=== PATIENT | female | born 1985 | race Caucasian/White ===

== ENCOUNTER 2021-05-17 04:31 | Inpatient (IN) | payer BC ==
[2021-05-17] MEDS ORDERED: Lactated Ringers 1,000 ML IV ONE ×2 (05:09→05:41)
[2021-05-17] MEDS ORDERED: Carboprost Tromethamine 250 MCG/1 ML Amp IM PRN (05:41)
[2021-05-17] MEDS ORDERED: Lidocaine 1% 30 ML SDV INJECT PRN (05:41)
[2021-05-17] MEDS ORDERED: Sodium Chloride 0.9% 10 ML Syringe FLUSH PRN (05:41)
[2021-05-17] MEDS ORDERED: Misoprostol 400 MCG (4 X 100 MCG TAB) RECTAL PRN (05:41)
[2021-05-17] MEDS ORDERED: Methylergonovine 0.2 MG/1 ML Amp IM PRN (05:41)
[2021-05-17] MEDS ORDERED: Acetaminophen 325 MG Tab PO PRN ×2 (05:41→10:09)
[2021-05-17] MEDS ORDERED: Tranexamic Acid 1,000 MG in Sodium Chloride 0.9% 100 ML IV PRN (05:41)
[2021-05-17] MEDS ORDERED: Ondansetron 4 MG/2 ML SDV IVPUSH PRN (05:41)
[2021-05-17] MEDS ORDERED: Oxytocin/Normal Saline 30 UNIT/500 ML BAG IV SCH (05:45)
[2021-05-17] MEDS ORDERED: fentaNYL 100 MCG/2 ML SDV ONE (05:46)
[2021-05-17] MEDS ORDERED: Sodium Bicarbonate 4.2% 2.5 MEQ/5 ML SDV ONE (05:47)
[2021-05-17] MEDS ORDERED: EPINEPHrine 1 MG/ML SDV ONE (05:47)
[2021-05-17] MEDS ORDERED: ePHEDrine 50 MG/ML SDV ONE (06:08)
[2021-05-17] MEDS ORDERED: ePHEDrine 50 MG/ML SDV IVPUSH PRN (06:12)
[2021-05-17] MEDS: Lactated Ringers 1,000 ML IV SCH ×2 (07:25→17:49)
[2021-05-17] MEDS ORDERED: Simethicone 80 MG Tab.Chew PO PRN (10:09)
[2021-05-17] MEDS ORDERED: Oxytocin 10 Units/1 ML SDV IM PRN (10:09)
[2021-05-17] MEDS ORDERED: Benzocaine/Menthol 20%-0.5% Spray 78 GM Cannister TOP PRN (10:09)
[2021-05-17] MEDS: Ibuprofen 800 MG Tab PO PRN (17:45)
[2021-05-17] MEDS: Docusate Sodium 100 MG Cap PO PRN (20:45)
[2021-05-18] MEDS: Ibuprofen 800 MG Tab PO PRN (04:14)
[2021-05-18] MEDS ORDERED: Prenatal Multivitamin with Calcium/Folic Acid/Iron Tab PO SCH (09:00)
[2021-05-18] MEDS: Docusate Sodium 100 MG Cap PO PRN (10:30)
[2021-05-18 14:01] VITALS: BP 95/54; PULSE 85
== END 2021-05-18 13:50 | disposition home or self-care (01) | DRG 560 ==
LOC: DL.OBCHECK 04:31 → DL.OB 05:23
PROVIDERS: ADMIT Family Medicine; ATTEND Family Medicine
PROC: 10E0XZZ Delivery of Products of Conception, External Approach (ICD-10-PCS; principal; 2021-05-17)
PROC: 0HQ9XZZ Repair Perineum Skin, External Approach (ICD-10-PCS; 2021-05-17)
DX: O99.02 Anemia complicating childbirth (principal); O98.52 Other viral diseases complicating childbirth; U07.1 COVID-19; Z3A.38 38 weeks gestation of pregnancy; Z37.0 Single live birth; O99.12 Other diseases of the blood and blood-forming organs and certain disorders involving the immune mechanism complicating childbirth; D69.6 Thrombocytopenia, unspecified; D64.9 Anemia, unspecified; O69.1XX0 Labor and delivery complicated by cord around neck, with compression, not applicable or unspecified; O77.0 Labor and delivery complicated by meconium in amniotic fluid; O70.0 First degree perineal laceration during delivery
CPT/HCPCS: 36415; 59409; 85025; 85027; A9270-GY; J2590; J7120; U0002

== ENCOUNTER 2023-02-19 23:16 | Inpatient (IN) | payer BC ==
[2023-02-19] MEDS: Lactated Ringers 1,000 ML IV SCH (23:44)
[2023-02-19] MEDS ORDERED: Oxytocin/Normal Saline 30 UNIT/500 ML BAG IV SCH (23:45)
[2023-02-19 23:54] LABS: HEMATOCRIT 36.3 % (37.0-47.0); HEMOGLOBIN 11.9 g/dL (12.0-16.0); MEAN CORPUSCULAR HEMOGLOBIN 31.5 pg (27.0-34.0); MEAN CORPUSCULAR HGB CONC 32.8 g/dL (33.0-35.0); PLATELET COUNT,PLT 108 10^3/uL (150-450); RED BLOOD CELL COUNT 3.78 10^6/uL (4.2-5.4); WHITE BLOOD CELL COUNT,WBC 10.3 10^3/uL (5.0-10.0)
[2023-02-19] MEDS ORDERED: Lactated Ringers 1,000 ML IV ONE (23:55)
[2023-02-19] MEDS ORDERED: Misoprostol 400 MCG (4 X 100 MCG TAB) RECTAL PRN (23:55)
[2023-02-19] MEDS ORDERED: Acetaminophen 325 MG Tab PO PRN (23:55)
[2023-02-19] MEDS ORDERED: Lidocaine 1% 30 ML SDV INJECT ONE (23:55)
[2023-02-19] MEDS ORDERED: Carboprost Tromethamine 250 MCG/1 ML Amp IM PRN (23:55)
[2023-02-19] MEDS ORDERED: Ondansetron 4 MG/2 ML SDV IVPUSH PRN (23:55)
[2023-02-19] MEDS ORDERED: Methylergonovine 0.2 MG/1 ML Amp IM PRN (23:55)
[2023-02-19] MEDS ORDERED: Tranexamic Acid 1,000 MG in Sodium Chloride 0.9% 100 ML IV PRN (23:55)
[2023-02-19] MEDS ORDERED: Sodium Chloride 0.9% 10 ML Syringe FLUSH PRN (23:55)
[2023-02-20 00:01] LABS: BASOPHILS PERCENT AUTO 0.2 % (0.0-1.0); EOSINOPHILS PERCENT AUTO 0.5 % (1.0-3.0); LYMPHOCYTES PERCENT AUTO 21.1 % (20.5-50.1); MONOCYTES PERCENT AUTO 9.6 % (2-8); NEUTROPHILS PERCENT AUTO 68.6 % (42.2-75.2)
[2023-02-20] MEDS: Lactated Ringers 1,000 ML IV SCH (00:03)
[2023-02-20 00:25] LABS: BAND PERCENT MAN 2 %; EOSINOPHILS PERCENT MAN 1 % (1-3); LYMPHOCYTES PERCENT MAN 20 % (20-50); MONOCYTES PERCENT MAN 9 % (2-8); SEG NEUTROPHILS PERCENT MAN 68 % (42-75)
[2023-02-20] MEDS ORDERED: Phenylephrine HCl In 0.9% NaCl 1 MG/10 ML Syringe IVPUSH PRN (00:28)
[2023-02-20] MEDS ORDERED: ePHEDrine 50 MG/ML SDV IVPUSH PRN (00:28)
[2023-02-20] MEDS ORDERED: Ropivacaine 200 MG in Premix Bag 1 BAG EPIDUR SCH (00:30)
[2023-02-20] MEDS ORDERED: Benzocaine/Menthol 20%-0.5% Spray 78 GM Cannister TOP PRN (02:00)
[2023-02-20] MEDS ORDERED: Simethicone 80 MG Tab.Chew PO PRN (02:00)
[2023-02-20] MEDS ORDERED: Carboprost Tromethamine 250 MCG/1 ML Amp IM PRN (02:00)
[2023-02-20] MEDS ORDERED: Acetaminophen 325 MG Tab PO PRN (02:00)
[2023-02-20] MEDS ORDERED: Zolpidem 5 MG Tab PO PRN (02:00)
[2023-02-20] MEDS ORDERED: Tranexamic Acid 1,000 MG in Sodium Chloride 0.9% 100 ML IV PRN (02:00)
[2023-02-20] MEDS ORDERED: Sodium Chloride 0.9% 10 ML Syringe FLUSH PRN (02:00)
[2023-02-20] MEDS ORDERED: Misoprostol 400 MCG (4 X 100 MCG TAB) RECTAL PRN (02:00)
[2023-02-20] MEDS ORDERED: Oxytocin 10 Units/1 ML SDV IM PRN (02:00)
[2023-02-20] MEDS: Ibuprofen 800 MG Tab PO PRN ×2 (05:36→16:30)
[2023-02-20] MEDS: Docusate Sodium 100 MG Cap PO PRN ×2 (09:12→21:08)
[2023-02-20] MEDS: Prenatal Multivitamin with Calcium/Folic Acid/Iron Tab PO SCH (09:12)
[2023-02-20 10:07] LABS: HEMATOCRIT 34.2 % (37.0-47.0); HEMOGLOBIN 11.3 g/dL (12.0-16.0)
[2023-02-21] MEDS: Ibuprofen 800 MG Tab PO PRN (06:10)
[2023-02-21 08:53] VITALS: BP 103/51; PULSE 66
[2023-02-21] MEDS: Docusate Sodium 100 MG Cap PO PRN (09:38)
[2023-02-21] MEDS: Prenatal Multivitamin with Calcium/Folic Acid/Iron Tab PO SCH (09:38)
== END 2023-02-21 12:00 | disposition home or self-care (01) | DRG 560 ==
LOC: DL.OBCHECK 23:16 → DL.OB 23:55 → OBSVTOIN 02-20 01:23
PROVIDERS: ADMIT Student in an Organized Health Care Education/Training Program; ATTEND Student in an Organized Health Care Education/Training Program
PROC: 10E0XZZ Delivery of Products of Conception, External Approach (ICD-10-PCS; principal; 2023-02-20)
PROC: 10907ZC Drainage of Amniotic Fluid, Therapeutic from Products of Conception, Via Natural or Artificial Opening (ICD-10-PCS; 2023-02-20)
PROC: 3E0R3BZ Introduction of Anesthetic Agent into Spinal Canal, Percutaneous Approach (ICD-10-PCS; 2023-02-20)
PROC: 00HU33Z Insertion of Infusion Device into Spinal Canal, Percutaneous Approach (ICD-10-PCS; 2023-02-20)
DX: O99.12 Other diseases of the blood and blood-forming organs and certain disorders involving the immune mechanism complicating childbirth (principal); Z37.0 Single live birth; D69.6 Thrombocytopenia, unspecified; O69.89X0 Labor and delivery complicated by other cord complications, not applicable or unspecified; O99.02 Anemia complicating childbirth; O77.0 Labor and delivery complicated by meconium in amniotic fluid; O69.81X0 Labor and delivery complicated by cord around neck, without compression, not applicable or unspecified; D62 Acute posthemorrhagic anemia; Z3A.39 39 weeks gestation of pregnancy; Z90.89 Acquired absence of other organs; Z98.890 Other specified postprocedural states; Z67.10 Type A blood, Rh positive; Z78.9 Other specified health status
CPT/HCPCS: 36415; 51701; 59409; 85014; 85018; 85025; 85049; 86850; 86900; 86901; A9270-GY; C1729; J2590; J2795; J3490; J7120